=== PATIENT | male | born 1975 | race African-American/Black ===

== ENCOUNTER 2018-02-15 16:19 | Emergency (ER) | payer OTHER ==
[~2018-02-15] VITALS: Ht 177.8 cm; Wt 80.0 kg
[2018-02-15 16:22] VITALS: BP 147/64
== END 2018-02-15 17:45 | disposition left against medical advice (07) ==
LOC: ER 16:19
DX: M54.5 Low back pain (principal); Z53.21 Procedure and treatment not carried out due to patient leaving prior to being seen by health care provider